=== PATIENT | female | born 1960 | race African-American/Black ===

== ENCOUNTER 2024-04-04 15:28 | Inpatient (IN) | payer OTHER, MEDICARE ==
[~2024-04-04] VITALS: Ht 157.5 cm; Wt 86.2 kg
[2024-04-04 16:05] LABS: BASOPHILS % 1.1 % (0.0-2.0); EOSINOPHILS % 1.7 % (0.0-5.0); HEMOGLOBIN. 13.9 g/dL (12.0-16.0); LYMPHOCYTES % 39.9 % (20.0-50.0); MEAN CORPUSCULAR HEMOGLOBIN 30.3 pg (28.0-32.0); MEAN CORPUSCULAR HGB CONC 33.1 g/dL (31.0-37.0); MEAN CORPUSCULAR VOLUME 91.5 fL (80.0-94.0); MEAN PLATELET VOLUME 9.6 fl (7.4-10.4); MONOCYTES % 4.9 % (2.0-8.0); NEUTROPHILS % 52.4 % (40.0-76.0); PLATELET 279 x1000/uL (130-400); RED BLOOD CELL COUNT 4.59 mill/uL (4.2-5.4); RED CELL DISTRIBUTION WIDTH 13.5 % (11.6-14.6); WHITE BLOOD COUNT 7.2 x1000/uL (4.5-11.0)
[2024-04-04 16:11] LABS: CHLORIDE 98 mEq/L (98-107); POTASSIUM 3.8 mEq/L (3.5-5.1); SODIUM 132 mEq/L (136-145)
[2024-04-04 16:12] LABS: CALCIUM 9.5 mg/dL (8.7-10.4); CARBON DIOXIDE 30 mEq/L (21-32)
[2024-04-04 16:17] LABS: CREATININE 1.1 mg/dL (0.6-1.0); UREA NITROGEN BLOOD 9 mg/dL (9-23)
[2024-04-04 16:23] LABS: GLUCOSE 501 mg/dL (70-105)
[2024-04-04] MEDS: SODIUM CHLORIDE 0.9% 1,000 ML IV ONE (17:11)
[2024-04-04 17:37] LABS: TROPONIN I HIGH SENSITIVITY 12 ng/L (3.0-34)
[2024-04-04 17:40] LABS: ALANINE AMINOTRANSFERASE 10 IU/L (10-49); ALBUMIN 3.6 g/dL (3.2-4.8); ASPARTATE AMINOTRANSFERASE 11 IU/L (<34); BILIRUBIN TOTAL 0.2 mg/dL (0.1-1.0)
[2024-04-04 17:43] LABS: BETA HYDROXYBUTYRATE < 0.1 mMol/L (0.0-0.3); BILIRUBIN DIRECT < 0.1 mg/dL (<=3.0); ETHANOL BLOOD < 10 mg/dL (<10)
[2024-04-04 18:44] LABS: CLARITY URINE CLEAR (CLEAR); COLOR URINE YELLOW (YELLOW); GLUCOSE URINE 3+ (NEGATIVE); KETONES URINE NEGATIVE (NEGATIVE); LEUKOCYTE ESTERASE URINE NEGATIVE (NEGATIVE); NITRITE URINE NEGATIVE (NEGATIVE); OCCULT BLOOD URINE NEGATIVE (NEGATIVE); PH URINE 6.5 (4.5-8.0); PROTEIN URINE 1+ (NEGATIVE); SPECIFIC GRAVITY URINE 1.024 (1.005-1.030); UROBILINOGEN URINE 0.2 E.U./dL (0.2-1.0)
[2024-04-04] MEDS: HYDRALAZINE 20MG/ML VIAL IV ONE (18:53)
[2024-04-04 19:07] LABS: BACTERIA URINE 1+; RBC URINE 0-2 /hpf (0-2); SQUAMOUS EPITHELIAL CELL URINE 1+ /lpf (RARE/1+); WBC URINE 0-2 /hpf (0-2)
[2024-04-04] MEDS: INSULIN REGULAR (HUMULIN R) 1000UNITS/10ML VIAL SUBCUT ONE (19:27)
[2024-04-04] MEDS: LABETALOL 5MG/ML 4ML INJ IV NR (22:34)
[2024-04-04] MEDS: LABETALOL 5MG/ML 4ML INJ IV SCH (23:36)
[2024-04-05 08:00] VITALS: BP 188/90; PULSE 106; RESP 20; TEMP 97.6
[2024-04-05] MEDS ORDERED: LOSARTAN 100 MG TABLET PO SCH (09:00)
[2024-04-05] MEDS ORDERED: METOPROLOL TARTRATE 50MG TABLET PO SCH ×2 (09:00→21:00)
[2024-04-05 10:30] VITALS: BP 188/90; PULSE 74; RESP 20; TEMP 97.5
[2024-04-05 12:00] VITALS: BP 185/90; PULSE 96; RESP 19; TEMP 96.7
[2024-04-05] MEDS ORDERED: PREG225C MT (12:02)
[2024-04-05] MEDS ORDERED: LOSA50TA41 MT (12:04)
[2024-04-05] MEDS ORDERED: METF500S9 PO (12:04)
[2024-04-05] MEDS ORDERED: INSU100V36 SQ (12:05)
[2024-04-05] MEDS ORDERED: CYM20 PO (12:09)
[2024-04-05] MEDS ORDERED: OXYC-100 MT (12:11)
[2024-04-05] MEDS ORDERED: LOPJ5 IV (12:11)
[2024-04-05] MEDS ORDERED: OMEP20CA14 PO (12:34)
[2024-04-05] MEDS ORDERED: DULO60CA64 PO (12:34)
[2024-04-05] MEDS ORDERED: SIMV-43 PO (12:34)
[2024-04-05] MEDS ORDERED: PREG225C8 PO (12:34)
[2024-04-05] MEDS ORDERED: LOSA100T33 PO (12:34)
[2024-04-05] MEDS ORDERED: SULF1TAB44 PO (12:34)
[2024-04-05] MEDS ORDERED: METF-907 PO (12:34)
[2024-04-05] MEDS ORDERED: OXYC1TAB5 PO (12:34)
[2024-04-05] MEDS ORDERED: METO-539 PO (12:34)
[2024-04-05] MEDS ORDERED: SODIUM CHLORIDE 0.9% 1,000 ML IV SCH (14:30)
[2024-04-05] MEDS ORDERED: DEXTROSE 50% WATER 50ML SYRINGE IV PRN (15:00)
[2024-04-05] MEDS ORDERED: NALOXONE HCL 0.4MG/ML VIAL IV PRN ×2 (15:15→16:00)
[2024-04-05] MEDS: OXYCODONE HCL/ACETAMINOPHEN 5/325MG TABLET PO PRN (15:41)
[2024-04-05] MEDS: LOSARTAN 100 MG TABLET PO SCH (15:47)
[2024-04-05] MEDS: METOPROLOL TARTRATE 50MG TABLET PO SCH (15:52)
[2024-04-05 16:00] VITALS: BP 205/96; PULSE 88; RESP 18; TEMP 96.7
[2024-04-05] MEDS: LORAZEPAM 0.5MG TABLET PO PRN (17:00)
[2024-04-05] MEDS: BLOOD SUGAR DIAGNOSTIC STRIP TEST SCH (17:10)
[2024-04-05] MEDS: INSULIN LISPRO 100 UNITS/ML SUBCUT SCH (18:14)
[2024-04-05] MEDS: CLONIDINE 0.2MG TABLET PO PRN (18:16)
[2024-04-05 20:00] VITALS: BP 150/74; PULSE 70; RESP 18; TEMP 96.4
[2024-04-05] MEDS: ONDANSETRON HCL 4MG TABLET PO PRN (22:22)
[2024-04-06] VITALS: BP 159/72; PULSE 69; RESP 18; TEMP 96.3
[2024-04-06 04:00] VITALS: BP 152/62; PULSE 76; RESP 18; TEMP 97.5
[2024-04-06 08:00] VITALS: BP 164/65; PULSE 72; RESP 20; TEMP 98
[2024-04-06] MEDS ORDERED: LOSARTAN 100 MG TABLET PO SCH (09:00)
[2024-04-06] MEDS: METFORMIN HCL 500MG TABLET PO SCH (09:40)
[2024-04-06] MEDS: PANTOPRAZOLE SODIUM 40 MG/VIAL IV SCH (09:40)
[2024-04-06] MEDS: CYCLOBENZAPRINE 10MG TABLET PO SCH (09:40)
[2024-04-06 12:27] VITALS: BP 169/73; PULSE 65; RESP 20; TEMP 97.9
[2024-04-06 14:39] VITALS: BP 157/67; PULSE 72
[2024-04-06] MEDS: DOCUSATE SODIUM 100MG CAPSULE PO NR (17:50)
[2024-04-06 18:33] LABS: TROPONIN I HIGH SENSITIVITY 9 ng/L (3.0-34)
[2024-04-06 19:27] VITALS: BP 157/86; PULSE 72; TEMP 97.8; O2SAT 100
[2024-04-06 19:32] LABS: CHLORIDE 105 mEq/L (98-107); POTASSIUM 3.4 mEq/L (3.5-5.1); SODIUM 138 mEq/L (136-145)
[2024-04-06 19:33] LABS: CALCIUM 9.5 mg/dL (8.7-10.4); CARBON DIOXIDE 26 mEq/L (21-32)
[2024-04-06 19:38] LABS: CREATININE 0.8 mg/dL (0.6-1.0); GLUCOSE 223 mg/dL (70-105); UREA NITROGEN BLOOD 8 mg/dL (9-23)
== END 2024-04-06 21:05 | disposition home or self-care (01) | DRG 637 ==
LOC: ER 15:28 → 5WST 19:35 → EDBEDREQTM 19:39 → EDBEDREQ 19:39 → 8WST 04-05 10:04
PROVIDERS: ADMIT Internal Medicine; ATTEND Internal Medicine
DX: E11.65 Type 2 diabetes mellitus with hyperglycemia (principal); G93.41 Metabolic encephalopathy; K86.1 Other chronic pancreatitis; E86.0 Dehydration; F41.9 Anxiety disorder, unspecified; E66.9 Obesity, unspecified; I10 Essential (primary) hypertension; Z79.4 Long term (current) use of insulin; Z82.49 Family history of ischemic heart disease and other diseases of the circulatory system; Z83.3 Family history of diabetes mellitus; Z88.0 Allergy status to penicillin; Z68.34 Body mass index [BMI] 34.0-34.9, adult; Z79.899 Other long term (current) drug therapy; Z91.048 Other nonmedicinal substance allergy status; Z90.49 Acquired absence of other specified parts of digestive tract
CPT/HCPCS: 36415; 71045; 74176; 80048; 80076; 80320; 81003; 82010; 82962; 83605; 83880; 84145; 84484; 85025; 93005; 99285; J0360; J1815; J3490; J7030; Q0162; G0480